=== PATIENT | male | born 1975 | race Caucasian/White ===

== ENCOUNTER 2022-05-21 13:15 | Emergency (ER) | payer OTHER ==
[~2022-05-21] VITALS: Ht 182.9 cm; Wt 109.0 kg
[2022-05-21] MEDS ORDERED: MORPHINE SULFATE 4 MG/ML CPJ (NOT FOR IM USE) IV STA (13:52)
[2022-05-21] MEDS ORDERED: KETOROLAC 30MG/ML VIAL IV ONE (17:45)
[2022-05-21] MEDS ORDERED: FLUORESCEIN SODIUM 1MG/STRIP BOTHEYE ONE (17:45)
[2022-05-21] MEDS ORDERED: MORPHINE SULFATE 4 MG/ML CPJ (NOT FOR IM USE) IV ONE (17:45)
[2022-05-21] MEDS ORDERED: POLYMYXIN B SULFATE/TMP 10ML BOTTLE BOTHEYE SCH (17:45)
[2022-05-21] MEDS ORDERED: TETRACAINE 0.5% OPHTH DROPS 4ML BOTHEYE ONE (18:15)
[2022-05-21] MEDS ORDERED: CYCL5TAB MT (19:47)
[2022-05-21] MEDS ORDERED: IBUP-2030 MT (19:47)
[2022-05-21] MEDS ORDERED: POLY10DR LEFTEYE (19:47)
[2022-05-21 22:00] VITALS: BP 132/81
== END 2022-05-21 23:50 | disposition home or self-care (01) ==
LOC: ER 13:15
DX: S09.8XXA Other specified injuries of head, initial encounter (principal); S05.02XA Injury of conjunctiva and corneal abrasion without foreign body, left eye, initial encounter; S05.01XA Injury of conjunctiva and corneal abrasion without foreign body, right eye, initial encounter; M54.2 Cervicalgia; R53.1 Weakness; R20.0 Anesthesia of skin; M54.50 Low back pain, unspecified; E11.9 Type 2 diabetes mellitus without complications; W22.8XXA Striking against or struck by other objects, initial encounter; Y93.H3 Activity, building and construction; Y92.89 Other specified places as the place of occurrence of the external cause; Y99.8 Other external cause status
CPT/HCPCS: 70450; 72125; 72128; 72131; 72141; 72146; 72148; 96374; 96375; 96376; 99285; J1885; J2270; Z7610